=== PATIENT | male | born 1935 | race Caucasian/White ===

== ENCOUNTER 2019-02-23 15:31 | Observation (INO) | payer OTHER ==
[2019-02-23 15:44] VITALS: BMI 26.2
--- NOTE | 2019-02-23 15:49 | PDOC ---
History of Present Illness - General Chief Complaint: Lethargy Stated Complaint: LETHARGIC Time Seen by Provider: 02/23/19 15:46 - History of Present Illness Initial Comments: 02/23/19 17:37 The patient is an 83 year old male with a history of Dementia who presents for evaluation of lethargy and altered mental status. The patient is accompanied by family who assists in providing the history. They note that the patient was behaving normal prior to 1 day ago and is usually very ambulatory and active. However over the past 1 day, he has had no PO intake and very lethargy prompting his presentation to the ED for further evaluation. They also note that the patient urinated himself which was unusual. The patient denies any complaints currently and otherwise denies fevers, chills, SOB, chest pain, nausea, vomiting, or abdominal pain. Past History - Past Medical History Allergies/Adverse Reactions: Allergies Allergy/AdvReac Type Severity Reaction Status Date / Time No Known Allergies Allergy Verified 02/23/19 15:33 Home Medications: Ambulatory Orders Duloxetine HCl [Cymbalta -] 30 mg PO DAILY 02/23/19 Risperidone 0.5 mg PO BID 02/23/19 COPD: No Dementia: Yes - Surgical History Abdominal Surgery: Yes (ulcer repair) - Suicide/Smoking/Psychosocial Hx Smoking History: Never smoked Have you smoked in the past 12 months: No Information on smoking cessation initiated: No Hx Alcohol Use: No Drug/Substance Use Hx: No Review of Systems - Review of Systems Comments:: 02/23/19 17:43 Constitutional: Lethargy No fevers, chills, malaise HEENT: No Rhinorrhea, nasal congestion, visual changes Cardiovascular: No chest pain, syncope, palpitations, lightheadedness Respiratory: No Cough, SOB, Hemoptysis, Gastrointestinal: No Abdominal pain, Nausea, Vomiting, Constipation, Diarrhea, Melena Genitourinary: No Dysuria, Frequency, Urgency, Hesitancy, Hematuria, Flank pain Musculoskeletal: No Myalgia, arthralgia Skin: No rashes, itching, bruising, pallor Neurologic: No Headache, Dizziness, Numbness, Weakness, or Tingling Psychiatric: No Hallucinations. No SI or HI *Physical Exam - Vital Signs Last Vital Signs Temp Pulse Resp BP Pulse Ox 98.2 F 63 18 143/88 95 02/23/19 15:33 02/23/19 15:33 02/23/19 15:33 02/23/19 15:33 02/23/19 15:33 - Physical Exam Comments: 02/23/19 17:43 General Appearance: Nourished. No Apparent Distress HEENT: EOMI, VALERIA. No Pharyngeal Erythema, Tonsillar Exudate, Tonsillar Erythema Neck: No Cervical Lymphadenopathy Respiratory/Chest: Lungs Clear, Normal Breath Sounds. No Crackles, Rales, Rhonchi, Wheezing Cardiovascular: Regular Rhythm, Regular Rate. No Murmur, Gallops, Rubs Gastrointestinal/Abdominal: Normal Bowel Sounds, Soft. No Guarding, Rebound, Tenderness Musculoskeletal: No CVA Tenderness Extremity: Normal Capillary Refill Integumentary: Normal Color, Dry, Warm Neurologic: hair dresser II-XII NML intact, Fully Oriented, Alert, Normal Mood/Affect, Normal Response, Motor Strength 5/5. Heart Score/ECG Review #1 ECG reviewed & interpreted by me at: 18:12 02/23/19 18:12 Normal Sinus Rhythm Left [place] Deviation T wave inversions III, aVF HR 60 ID 136 QRS 110 QTc 424 ED Treatment Course - LABORATORY CBC & Chemistry Diagram: 02/23/19 16:00 02/23/19 16:00 Medical Decision Making - Medical Decision Making 02/23/19 17:44 The patient is an 83 year old male with a history of Dementia who presents for evaluation of lethargy and altered mental status. Differential includes but is not limited to: Intracranial process, Infectious, metabolic derangement. Given the patient's history and physical exam, we will obtain a cbc, cmp, tsh, mag, phos, ua, urine culture, ekg, chest plain film, head Ct to evaluate further. We will treat the patient with iv fluids and continue to monitor and reassess while here in the ED. 02/23/19 19:00 CBC is unremarkable. CMP demonstrates a creatinine of 1.5. Chest plain film is unremarkable. Head CT is unremarkable as read by our radiologist. Given the patient's CONCEPCION as well as twave inversions on EKG in the setting of altered mental status he will require admission for further monitoring and management. We discussed the case with the admitting team who accepted the patient for admission. *DC/Admit/Observation/Transfer Diagnosis at time of Disposition: Lethargy, CONCEPCION (acute kidney injury), Abnormal EKG Altered mental status Qualifiers: Altered mental status type: unspecified Qualified Code(s): R41.82 - Altered mental status, unspecified - Discharge Dispostion Condition at time of disposition: Stable Decision to Admit order: Yes - Referrals - Patient Instructions - Post Discharge Activity
[2019-02-23] MEDS ORDERED: SODIUM CHLORIDE 1,000 ML IV STA (16:34)
--- NOTE | 2019-02-23 16:43 | PDOC ---
Documentation entered by Adelso Bello SCRIBE, acting as scribe for Nohemi Orozco DO. oNhemi Orozco DO: This documentation has been prepared by the [employer]irvannie, SCRIBE, under my direction and personally reviewed by me in its entirety. I confirm that the documentation accurately reflects all work, treatment, procedures, and medical decision making performed by me. Attending Attestation - Resident Resident Name: Samuel Montanez - ED Attending Attestation I have performed the following: I have examined & evaluated the patient, The case was reviewed & discussed with the resident, I agree w/resident's findings & plan - HPI HPI: 02/23/19 16:52 The patient is an 83 year old male, with a significant past medical history of dementia and RA, who presents to the emergency department with, lethargy. As per daughter at bedside, patient was outside all day with his aid at which time he refused to drink any water. She notes last night he did not eat much and experienced urinary incontinence. While in the ED, patient is lethargic but, denies any complaints. He denies any recent fevers, chills, headache or dizziness. He denies any recent nausea, vomit, diarrhea or constipation. He denies any recent chest pain or shortness of breath. He denies any recent dysuria, frequency, urgency or hematuria. Allergies: NKDA Primary Care Physician: Dr. Amaya - Physicial Exam PE: 02/23/19 16:52 Constitutional: Awake, alert, oriented. No acute distress. Head: Normocephalic. Atraumatic Eyes: PERRL. EOMI. Conjunctivae are not pale. ENT: Mucous membranes are moist and intact. Posterior pharynx without exudates or erythema. Uvula midline. Neck: Supple. Full ROM. No lymphadenopathy. Cardiovascular: Regular rate. Regular rhythm. S1, S2 regular. Distal pulses are 2+ and symmetric. Pulmonary/Chest: No evidence of respiratory distress. Clear to auscultation bilaterally No wheezing, rales or rhonchi. Abdominal: Soft and non-distended. There is no tenderness. No rebound, guarding or rigidity. No organomegaly. No palpable masses. Good bowel sounds. Back: No CVA tenderness. Musculoskeletal: +Chronic RA joint changes. No edema. No cyanosis. No clubbing. Full range of motion in all extremities. No calf tenderness. Radial/ pedal pulses are intact and 2+ bilaterally Skin: Skin is warm and dry. No petechiae. No purpura. Neurological: +Pleasantly demented. +Lethargic. Alert and oriented to person, place, and time. Cranial nerves II-XII are grossly intact. Normal speech. Strength is grossly symmetric. No sensory deficits. Psychiatric: Good eye contact. Normal interaction, affect and behavior. - Medical Decision Making 02/23/19 16:41 I, Dr. Nohemi Orozco, DO, attest that this document has been prepared under my direction and personally reviewed by me in its entirety. I further attest, that it accurately reflects all work, treatment, procedures and medical decision -making performed by me. 02/23/19 16:41 a/p: 83yo male with hx of RA and dementia on risperdal and cymbalta with 1 day hx of lethargy -pt aaox3 -pt denies all complaints of pain -did not eat or drink yesterday, was outside in the sun -pt with urinary incontinence last night, daughter had to try and hold her father up to go to the bathroom -no fevers, no cough -denies dysuria -no hematuria -last bm yesterday -will send labs, head ct, cxr, ua, ucx -will give 1 L nss -PMD Dr. Amaya 02/23/19 18:08 pt with mild carmen and borderline trop abnl ekg will admit for dehydration, carmen, altered ms, borderline trop and abnl ekg 02/23/19 19:[address] neg cxr clear ua pending microblog sent to [facility] for admission 02/23/19 19:10 resident discussed the case with [facility] who accepts pt to service 02/23/19 19:32 no uti Heart Score/ECG Review - ECG Intrepretation Comment:: 02/23/19 18:09 sinus at 60, l axis, t wave inversions iii, avf, no acute st changes, abnl ekg - no prior to compare
[2019-02-23 16:45] LABS: BASO % 0.4 % (0-2.0); EOS % 0.8 % (0-4.5); HEMATOCRIT 39.4 % (35.4-49); HEMOGLOBIN 13.1 GM/dL (11.7-16.9); LYMPH % 16.8 % (8-40); MCH 28.2 pg (25.7-33.7); MCHC 33.4 g/dl (32.0-35.9); MEAN CELL VOLUME 84.7 fl (80-96); MEAN PLT VOLUME 8.5 fl (7.5-11.1); MONO % 14.3 % (3.8-10.2); NEUT % 67.7 % (42.8-82.8); PLATELET COUNT 211 K/MM3 (134-434); RBC 4.65 M/mm3 (4.00-5.60); RDW 14.6 % (11.9-15.9); WHITE BLOOD COUNT 7.5 K/mm3 (4.0-10.0)
[2019-02-23 17:20] LABS: ALBUMIN 3.1 g/dl (3.4-5.0); BILIRUBIN,TOTAL 0.6 mg/dL (0.2-1); BLOOD UREA NITROGEN 25.8 mg/dL (7-18); CALCIUM 8.4 mg/dL (8.5-10.1); CREATININE 1.5 mg/dL (0.55-1.3); MAGNESIUM 2.4 mg/dL (1.8-2.4); PHOSPHOROUS 3.1 mg/dL (2.5-4.9); POTASSIUM 4.4 mmol/L (3.5-5.1); TOT PROT 6.6 g/dl (6.4-8.2)
[2019-02-23 18:40] LABS: EPI CELLS 0.5 /HPF (0-5/HPF); HYALINE CASTS 1 /lpf (0-8); URINE APPEARANCE CLEAR; URINE BACTERIA 2.7 /hpf (NEGATIVE); URINE BILIRUBIN NEGATIVE (NEGATIVE); URINE COLOR YELLOW; URINE GLUCOSE (UA) NEGATIVE (NEGATIVE); URINE KETONE NEGATIVE (NEGATIVE); URINE LEUK ESTERASE TRACE (NEGATIVE); URINE NITRITE NEGATIVE (NEGATIVE); URINE PROTEIN 2+ (NEGATIVE); URINE RBC 1 /hpf (0-4); URINE UROBILINOGEN 0.2 mg/dL (0.2-1.0); URINE WBC 4 /hpf (0-5)
[2019-02-23] MEDS ORDERED: LORazepam 1 MG TABLET PO ONE (20:11)
[2019-02-23] MEDS ORDERED: SODIUM CHLORIDE 1,000 ML IV SCH (20:15)
[2019-02-23] MEDS ORDERED: LORazepam 0.5 MG TABLET ONE (20:26)
--- NOTE | 2019-02-23 20:28 | HP ---
CHIEF COMPLAINT: lethargy PCP: Dr. Minh Amaya HISTORY OF PRESENT ILLNESS: Pt. is an 83 y.o. M w/ PMHx. of Dementia and RA presents for increased lethargy. History obtained by Pt.s family at bedside as Pt. was own at the time of interview. Yesterday Pt. spent about 2 hours outside in the sun. Pt. returned inside and was noted to be behaving differently. Pt. has some slurred speech, generalized weakness, and was lethargic. Family attempted to rehydrate him with Pedialyte and he "perked up a little but was still lethargic." Over the course of the next 24 hours Pt. continued to have lethargy and decreased PO intake. At baseline per family Pt. is able to ambulate by himself and is alert and oriented to name and place, at night Pt. own. At the time of interview Pt. had received a bolus of IVF and per family was at his baseline mental status. Pt. is usually continent but after taking Risperidone can become more lethargic and urinate onhme self if not taken to the bathroom in time. Pt. denies any pain any where, diarrhea, constipation, any urinary changes, any blood in the stool, difficulty swallowing , shortness of breath, dizziness or lightheadedness. ER course was notable for: (1)CXR, Head CT (2)EKG, 1L NS (3) Recent Travel: No PAST MEDICAL HISTORY: As above PAST SURGICAL HISTORY: Removal of stomach ulcers in 1962 Social History: Smoking: Quit in late 70s, was 3PPD Alcohol: Extensive drinking in the past, quit 10 years ago Family History: Mother: Stomach cancer, Father Cancer- both in 50s -60s Allergies No Known Allergies Allergy (Verified 02/23/19 15:33) HOME MEDICATIONS: Home Medications Medication Instructions Recorded Duloxetine HCl [Cymbalta -] 30 mg PO DAILY 02/23/19 Risperidone 0.5 mg PO BID 02/23/19 REVIEW OF SYSTEMS As above PHYSICAL EXAMINATION Vital Signs - 24 hr 02/23/19 02/23/19 15:33 17:44 Temperature 98.2 F 97.6 F Pulse Rate 63 Pulse Rate [ 59 L Apical] Respiratory 18 16 Rate Blood Pressure 143/88 Blood Pressure 145/86 [Right] O2 Sat by Pulse 95 97 Oximetry (%) GENERAL: Awake, alert, and oriented to name only, in no acute distress. HEAD: Normal with no signs of trauma. EYES: Pupils equal, round and reactive to light, extraocular movements intact, sclera anicteric, conjunctiva clear. EARS, NOSE, THROAT: Ears normal, nares patent, oropharynx clear without exudates. Moist mucous membranes. NECK: Normal range of motion, supple without lymphadenopathy, JVD, or masses. LUNGS: Breath sounds equal, clear to auscultation bilaterally. No wheezes, and no crackles. No accessory muscle use. HEART: Regular rate and rhythm, normal S1 and S2 without murmur ABDOMEN: Soft, nontender, not distended, normoactive bowel sounds, no guarding, no rebound, no masses. MUSCULOSKELETAL: Normal range of motion at all joints. Hand deformities. No CVA tenderness. UPPER EXTREMITIES: 2+ radial pulses, warm, well-perfused. No cyanosis. No clubbing. No peripheral edema. LOWER EXTREMITIES: 2+ dorsal pedal pulses, warm, well-perfused. No calf tenderness. No peripheral edema. NEUROLOGICAL: Cranial nerves II-XII grosgly intact. Normal speech. Wide based slow gait. PSYCHIATRIC: Cooperative. Good eye contact. Appropriate mood and affect. SKIN: Warm, dry, normal turgor, no rashes or lesions noted, normal capillary refill. Laboratory Results - last 24 hr 02/23/19 02/23/19 02/23/19 16:00 16:00 18:00 WBC 7.5 RBC 4.65 Hgb 13.1 Hct 39.4 MCV 84.7 MCH 28.2 MCHC 33.4 RDW 14.6 Plt Count 211 MPV 8.5 Absolute Neuts (auto) 5.0 Neutrophils % 67.7 Lymphocytes % 16.8 Monocytes % 14.3 H Eosinophils % 0.8 Basophils % 0.4 Nucleated RBC % 0 Sodium 139 Potassium 4.4 Chloride 105 Carbon Dioxide 26 Anion Gap 8 BUN 25.8 H Creatinine 1.5 H Est GFR (CKD-EPI)AfAm 49.54 Est GFR (CKD-EPI)NonAf 42.74 Random Glucose 96 Calcium 8.4 L Phosphorus 3.1 Magnesium 2.4 Total Bilirubin 0.6 AST 26 ALT 32 Alkaline Phosphatase 80 Creatine Kinase 58 Troponin I 0.05 Total Protein 6.6 Albumin 3.1 L TSH 1.08 Urine Color Yellow Urine Appearance Clear Urine pH 5.0 Ur Specific [place] 1.020 Urine Protein 2+ H Urine Glucose (UA) Negative Urine Ketones Negative Urine Blood Negative Urine Nitrite Negative Urine Bilirubin Negative Urine Urobilinogen 0.2 Ur Leukocyte Esterase Trace Urine WBC (Auto) 4 Urine RBC (Auto) 1 Urine Casts (Auto) 1 U Epithel Cells (Auto) 0.5 Urine Bacteria (Auto) 2.7 ASSESSMENT/PLAN: Pt. is an 83 y.o. M w/ PMHx. of Dementia and RA presents for increased lethargy. #Altered Mental status 2/2 Dehydration and Progressive Dementia UA Negative CXR: Clear Head CT: chronic small vessel ischemic changes, sulcal widening and ventricular dilatation, no acute pathology EKG: shows TWI in leads III, aVF and V1, NSR Cr.: 1.5, BUN: 25.8---> report from family that all his labs have always been normal, last physical March 04, 2018 Fall risk precautions Would avoid using Ativan for agitation, consider using Haldol #CONCEPCION 2/2 Dehydration Cr: 1.5 reportedly normal in the past given 1L NS in ED, will c/w IVF encourage PO intake f/u BMP in AM #FEN NS @ 75ml/hr monitor electrolytes and replete as needed Regular Diet #DVT Ppx. Hep SQ BID--> because of fall risk precautions TEDs Visit type - Emergency Visit Emergency Visit: Yes ED Registration Date: 02/23/19 Care time: The patient presented to the Emergency Department on the above date and was hospitalized for further evaluation of their emergent condition. - New Patient This patient is new to me today: Yes Date on this admission: 02/23/19 - Critical Care Critical Care patient: No
--- NOTE | 2019-02-23 20:29 | PN ---
Teaching Attending Note Name of Resident: Minh Hassan ATTENDING PHYSICIAN STATEMENT I saw and evaluated the patient. I reviewed the resident's note and discussed the case with the resident. I agree with the resident's findings and plan as documented. SUBJECTIVE: Seen and examined; please refer to resident note for further historical information. Briefly, this is a 83 y/o male presenting to the ER with lethargy which is now reportedly improved to almost baseline but who was found to have an CONCEPCION (Cr 1.5; reportedly normal Cr as OP but no records available and no prior records). 10 sys ROS done and negative aside from HPI PMH, PSH, FH, SH reviewed Home Medications Medication Instructions Recorded Duloxetine HCl [Cymbalta -] 30 mg PO DAILY 02/23/19 Risperidone 0.5 mg PO BID 02/23/19 OBJECTIVE: VS, labs, imaging reveiwed NAD, AAO, resting comfortably in bed NC AT EOMI PERRLA RRR s1/2 no mgr Lungs CTAB, w/ sym exp NT ND +BS CN2-12 wnl, no fnd Normal mood, appropriate behavior EKG reviewed CXR reviewed CT head reviewed; no acute IC process ASSESSMENT AND PLAN: Patient presents with lethargy (resolved) and CONCEPCION following a day in the sun 1) Lethargy -Improved to baseline; likely 2/2 dehydration with underlying issues from dementia and psych meds. Empirically hydrating overnight. Benign neuro exam. Neuro checks overnight and will again discuss his state with the family in the AM. 2) CONCEPCION -Cr 1.5; baseline unknown. Will call PCP and hydrate with 75cc/hr isotonic overnight and check FeNa. CHAPO and consider renal consult if it worsens. Monitor BMP and UOP and avoid nephrotoxins. 3) RA -Not on DMARDS; followup OP with PCP. 4) Dementia -Likely relation to #1 noted; continue duloxetine and risperidone. Monitor QTc and continue home meds.
[2019-02-23] MEDS ORDERED: HEPARIN NA (PORCINE) 5,000 UNITS/ML 1ML VIAL SQ SCH (22:00)
[2019-02-23] MEDS ORDERED: HEPARIN NA (PORCINE) 5,000 UNITS/ML 1ML VIAL ONE (22:10)
[2019-02-24 06:24] VITALS: BP 140/87; PULSE 106; TEMP 98.9
--- NOTE | 2019-02-24 08:54 | DS ---
Physical Examination Vital Signs: Vital Signs Temperature 37.2 C 02/24/19 06:00 Pulse Rate 106 H 02/24/19 06:00 Respiratory Rate 20 02/24/19 06:00 Blood Pressure 140/87 02/24/19 06:00 O2 Sat by Pulse Oximetry (%) 98 02/24/19 04:06 Labs: CBC, BMP 02/23/19 16:00 02/23/19 16:00 Discharge Summary Reason For Visit: ACUTE KIDNEY INJURY Hospital Course: Patient left AMA overnight before being seen by me. Condition: Stable - Instructions Disposition: AGAINST MEDICAL ADVICE - Home Medications Comprehensive Discharge Medication List: Ambulatory Orders Duloxetine HCl [Cymbalta -] 30 mg PO DAILY 02/23/19 Risperidone 0.5 mg PO BID 02/23/19
[2019-02-24] MEDS ORDERED: DULoxetine HCL 30 MG CAPSULE.DR PO SCH (10:00)
[2019-02-24] MEDS ORDERED: risperiDONE 0.5 MG TABLET (FP) PO SCH (10:00)
--- NOTE | 2019-02-24 11:46 | EKG ---
Test Reason : Blood Pressure : / mmHG Vent. Rate : 060 BPM Atrial Rate : 060 BPM P-R Int : 136 ms QRS Dur : 110 ms QT Int : 424 ms P-R-T Axes : 053 -37 -15 degrees QTc Int : 424 ms POOR DATA QUALITY, INTERPRETATION MAY BE ADVERSELY AFFECTED NORMAL SINUS RHYTHM LEFT AXIS DEVIATION MODERATE VOLTAGE CRITERIA FOR LVH, MAY BE NORMAL VARIANT ABNORMAL ECG Confirmed by JONI LAN, SIRISHA ([id number]) on 02/24/2019 11:45:41 AM Referred By: Confirmed By:SIRISHA QUIONNES MD
== END 2019-02-24 07:58 | disposition left against medical advice (07) ==
LOC: JER 15:31 → INTOOBSV 18:14 → JERBED 18:14 → J7W 22:55
PROVIDERS: ADMIT Internal Medicine; ATTEND Internal Medicine
PROC: 3E0337Z Introduction of Electrolytic and Water Balance Substance into Peripheral Vein, Percutaneous Approach (ICD-10-PCS; principal; 2019-02-23)
PROC: 3E013GC Introduction of Other Therapeutic Substance into Subcutaneous Tissue, Percutaneous Approach (ICD-10-PCS; 2019-02-23)
DX: E86.0 Dehydration (principal); R41.82 Altered mental status, unspecified; N17.9 Acute kidney failure, unspecified; R94.31 Abnormal electrocardiogram [ECG] [EKG]; R53.83 Other fatigue; F03.90 Unspecified dementia, unspecified severity, without behavioral disturbance, psychotic disturbance, mood disturbance, and anxiety; M06.9 Rheumatoid arthritis, unspecified
CPT/HCPCS: 36415; 70450-TC; 71045-TC-FY; 80053; 81003; 82550; 83735; 84100; 84156; 84443; 84484; 84540; 85025; 87086; 87186; 93005; 93010; 96360; 96372; 99285-25; G0378; J1644; J7030